=== PATIENT | female | born 1935 | race Caucasian/White ===

== ENCOUNTER 2017-03-24 15:44 | Inpatient (IN) | payer MEDICARE, OTHER ==
[2017-03-24 20:13] LABS: LACTIC ACID 2.2 mmol/L (0.5-2.0)
[2017-03-24 20:14] LABS: ALANINE AMINOTRANSFERASE 31 IU/L (13-69); ALBUMIN 3.9 g/dl (3.3-4.9); ALBUMIN/GLOBULIN RATIO 1.39; ALKALINE PHOSPHATASE 60 IU/L (42-121); ANION GAP 16 (8-16); ASPARTATE AMINO TRANSFERASE 25 IU/L (15-46); BILIRUBIN,INDIRECT 0.1 mg/dl (0-1.1); BILIRUBIN,TOTAL 0.1 mg/dl (0.2-1.3); BLOOD UREA NITROGEN 36 mg/dl (7-20); CALCIUM 9.1 mg/dl (8.4-10.2); CARBON DIOXIDE 29 mmol/L (21-31); CHLORIDE 96 mmol/L (97-110); CREATININE 0.98 mg/dl (0.44-1.00); GLUCOSE 100 mg/dl (70-220); SODIUM 137 mmol/L (135-144); TOTAL PROTEIN 6.7 g/dl (6.1-8.1)
[2017-03-24 20:15] LABS: ADD MAN DIFF? NO
[2017-03-24 20:17] LABS: BASOPHILS % 0.1 % (0.0-2.0); HEMATOCRIT 34.7 % (37.0-47.0); HEMOGLOBIN 11.7 g/dl (12.0-16.0); LYMPHOCYTES # 0.9 10^3/ul (0.8-2.9); LYMPHOCYTES % 8.4 % (15.0-51.0); MEAN CORPUSCULAR HEMOGLOBIN 32.8 pg (29.0-33.0); MEAN CORPUSCULAR HGB CONC 33.7 g/dl (32.0-37.0); MEAN CORPUSCULAR VOLUME 97.2 fl (82.0-101.0); MEAN PLATELET VOLUME 9.1 fl (7.4-10.4); MONOCYTE # 1.3 10^3/ul (0.3-0.9); MONOCYTES % 12.2 % (0.0-11.0); NEUTROPHIL # 8.6 10^3/ul (1.6-7.5); PLATELET COUNT 280 10^3/UL (140-415); RED BLOOD COUNT 3.57 10^6/ul (4.20-5.40); RED CELL DISTRIBUTION WIDTH 12.9 % (11.5-14.5)
[2017-03-24 20:17] LABS: WHITE BLOOD COUNT 10.8 10^3/ul (4.8-10.8)
[2017-03-24 20:24] LABS: TROPONIN-I 0.012 ng/ml (0.00-0.12)
[2017-03-24 20:36] LABS: ADD UMIC YES; INR 1.02; PROTIME 13.5 Sec (11.9-14.9); PT RATIO 1.1; UR ASCORBIC ACID NEGATIVE (NEGATIVE); UR BILIRUBIN (Dip) NEGATIVE (NEGATIVE); UR BLOOD (Dip) NEGATIVE (NEGATIVE); UR CLARITY CLEAR (CLEAR); UR COLOR YELLOW (YELLOW); UR GLUCOSE (Dip) NEGATIVE (NEGATIVE); UR KETONES (Dip) NEGATIVE (NEGATIVE); UR LEUKOCYTE ESTERASE (Dip) TRACE Leu/ul (NEGATIVE); UR NITRITE (Dip) NEGATIVE (NEGATIVE); UR RBC 2 /HPF (0-5); UR SPECIFIC GRAVITY (Dip) 1.016 (1.003-1.030); UR TOTAL PROTEIN (Dip) NEGATIVE (NEGATIVE); UR UROBILINOGEN (Dip) NEGATIVE (NEGATIVE); UR WBC 2 /HPF (0-5)
[2017-03-24 20:37] LABS: PARTIAL THROMBOPLASTIN TIME 28.3 Sec (25.0-35.0)
[2017-03-24 22:00] LABS: LACTIC ACID 2.1 mmol/L (0.5-2.0)
[2017-03-24] MEDS: IODIXANOL LOCM 100 ML BTL (22:10)
[2017-03-24] MEDS: SOD CHLORIDE 0.9% 100 ML (22:10)
[2017-03-24] MEDS ORDERED: BENZONATATE 100 MG CAP PO (23:30)
[2017-03-25] MEDS ORDERED: NACL 0.9% 3 ML SYG IV
[2017-03-25] MEDS ORDERED: ZOLPIDEM 5 MG TAB PO
[2017-03-25 00:10] LABS: LACTIC ACID 0.9 mmol/L (0.5-2.0)
[2017-03-25] MEDS: morphine 2 MG INJ IV ×5 (00:27→23:20)
[2017-03-25] MEDS: ONDANSETRON 4 MG INJ IV (00:27)
[2017-03-25] MEDS: SOD CHLORIDE 0.45% 1,000 ML IV ×2 (00:28→22:31)
[2017-03-25] MEDS: LEVOFLOXACIN 500MG/D5W (PMX) 100 ML IVPB ×2 (00:30→23:18)
[2017-03-25 05:47] LABS: ADD MAN DIFF? NO
[2017-03-25 05:48] LABS: BASOPHILS % 0.1 % (0.0-2.0); EOSINOPHILS % 0.1 % (0.0-7.0); HEMATOCRIT 34.7 % (37.0-47.0); HEMOGLOBIN 11.3 g/dl (12.0-16.0); MEAN CORPUSCULAR HEMOGLOBIN 31.8 pg (29.0-33.0); MEAN CORPUSCULAR HGB CONC 32.6 g/dl (32.0-37.0); MEAN CORPUSCULAR VOLUME 97.7 fl (82.0-101.0); MEAN PLATELET VOLUME 8.9 fl (7.4-10.4); MONOCYTES % 11.6 % (0.0-11.0); NEUTROPHIL # 6.9 10^3/ul (1.6-7.5); NEUTROPHILS % 76.8 % (39.0-77.0); PLATELET COUNT 249 10^3/UL (140-415); RED BLOOD COUNT 3.55 10^6/ul (4.20-5.40); RED CELL DISTRIBUTION WIDTH 13.1 % (11.5-14.5)
[2017-03-25 06:35] LABS: ALANINE AMINOTRANSFERASE 33 IU/L (13-69); ALBUMIN 3.3 g/dl (3.3-4.9); ALBUMIN/GLOBULIN RATIO 1.26; ALKALINE PHOSPHATASE 57 IU/L (42-121); ANION GAP 13 (8-16); ASPARTATE AMINO TRANSFERASE 22 IU/L (15-46); BILIRUBIN,INDIRECT 0.1 mg/dl (0-1.1); BILIRUBIN,TOTAL 0.1 mg/dl (0.2-1.3); BLOOD UREA NITROGEN 35 mg/dl (7-20); CALCIUM 8.5 mg/dl (8.4-10.2); CARBON DIOXIDE 26 mmol/L (21-31); CHLORIDE 102 mmol/L (97-110); CREATININE 0.91 mg/dl (0.44-1.00); GLUCOSE 91 mg/dl (70-220); POTASSIUM 4.2 mmol/L (3.5-5.1); SODIUM 137 mmol/L (135-144); TOTAL PROTEIN 5.9 g/dl (6.1-8.1)
[2017-03-25] MEDS: MAGNESIUM OXIDE 400 MG TAB PO (08:57)
[2017-03-25] MEDS: HYDROmorphONE 4 MG TAB PO ×2 (10:03→20:45)
[2017-03-26] MEDS: LEVALBUTEROL (NEB) 0.63 MG/3 ML AMP HHN (00:27)
[2017-03-26] MEDS: morphine 2 MG INJ IV ×3 (03:30→21:09)
[2017-03-26] MEDS: LORAZEPAM 1 MG TAB PO (05:57)
[2017-03-26] MEDS: MAGNESIUM OXIDE 400 MG TAB PO (08:34)
[2017-03-26 10:32] LABS: CA27.29 52 U/mL (<38)
[2017-03-26] MEDS: SOD CHLORIDE 0.45% 1,000 ML IV (20:30)
[2017-03-26] MEDS: LEVOFLOXACIN 500MG/D5W (PMX) 100 ML IVPB (23:30)
[2017-03-26] MEDS: HYDROmorphONE 4 MG TAB PO (23:50)
[2017-03-27] MEDS: morphine 2 MG INJ IV ×6 (01:06→23:55)
[2017-03-27] MEDS ORDERED: LEVALBUTEROL (NEB) 0.63 MG/3 ML AMP HHN (04:30)
[2017-03-27 05:20] LABS: AADO2 Arterial 93.7 mmHg (7.0-24.0); Allen Test ACCEPTAB; Arterial Base Excess -0.3 mmol/L (-3.0-3); Arterial Blood Gas Oxygen Sat 97.1 mmHG (95.0-100.0); Arterial COHb 0.2 % (0.0-3.0); Arterial Fraction of Oxyhgb 96.6 % (93.0-99.0); Arterial HCO3 24.2 mmol/L (22.0-26.0); Arterial MetHb 0.3 % (0.0-1.5); Arterial pCO2 39.2 mmhg (35-45); MODE NASAL CANNULA; Site Right Radial
[2017-03-27] MEDS: HYDROmorphONE 4 MG TAB PO ×2 (08:52→18:33)
[2017-03-27] MEDS: MAGNESIUM OXIDE 400 MG TAB PO (08:52)
[2017-03-27] MEDS: LEVOFLOXACIN 500MG/D5W (PMX) 100 ML IVPB (23:53)
[2017-03-28] MEDS: HYDROmorphONE 4 MG TAB PO (03:20)
[2017-03-28] MEDS: morphine 2 MG INJ IV ×5 (06:09→22:28)
[2017-03-28] MEDS: MAGNESIUM OXIDE 400 MG TAB PO (08:36)
[2017-03-29] MEDS: LEVOFLOXACIN 500MG/D5W (PMX) 100 ML IVPB (00:19)
[2017-03-29] MEDS: morphine 2 MG INJ IV ×5 (02:27→18:08)
[2017-03-29] MEDS: POLYETHYLENE GLYCOL 17 GM PACKET PO (09:03)
[2017-03-29] MEDS: SENNA TAB PO (09:03)
[2017-03-29] MEDS: MAGNESIUM OXIDE 400 MG TAB PO (09:03)
[2017-03-29] MEDS: LIDOCAINE 1% (MPF) 5 ML VIAL (16:08)
[2017-03-29] MEDS: HYDROmorphONE 4 MG TAB PO (16:18)
[2017-03-29] MEDS ORDERED: FENTAnyl PATCH 12 MCG/HR TRANSDERM (18:30)
[2017-03-29] MEDS: morphine 4 MG/ML VIAL IV (21:05)
[2017-03-30] MEDS: LEVOFLOXACIN 500MG/D5W (PMX) 100 ML IVPB (00:13)
[2017-03-30] MEDS: morphine 4 MG/ML VIAL IV ×2 (04:53→06:08)
[2017-03-30] MEDS: MAGNESIUM OXIDE 400 MG TAB PO ×2 (09:00→09:08)
[2017-03-30] MEDS: FOLIC ACID 1 MG TAB PO ×2 (09:00→09:08)
[2017-03-30] MEDS: POLYETHYLENE GLYCOL 17 GM PACKET PO ×2 (09:00→09:08)
[2017-03-30] MEDS: SENNA TAB PO ×2 (09:00→13:34)
[2017-03-30] MEDS: morphine 10 MG INJ IV ×4 (09:09→19:22)
[2017-03-30 11:03] LABS: ADD MAN DIFF? NO
[2017-03-30 11:08] LABS: ABNORMAL IP MESSAGE 1; BASOPHILS % 0.1 % (0.0-2.0); EOSINOPHILS % 0.1 % (0.0-7.0); HEMATOCRIT 32.8 % (37.0-47.0); HEMOGLOBIN 11.2 g/dl (12.0-16.0); LYMPHOCYTES # 0.5 10^3/ul (0.8-2.9); LYMPHOCYTES % 5.2 % (15.0-51.0); MEAN CORPUSCULAR HEMOGLOBIN 34.7 pg (29.0-33.0); MEAN CORPUSCULAR HGB CONC 34.1 g/dl (32.0-37.0); MEAN CORPUSCULAR VOLUME 101.5 fl (82.0-101.0); MEAN PLATELET VOLUME 9.2 fl (7.4-10.4); MONOCYTE # 0.8 10^3/ul (0.3-0.9); MONOCYTES % 8.1 % (0.0-11.0); NEUTROPHIL # 8.3 10^3/ul (1.6-7.5); NEUTROPHILS % 85.9 % (39.0-77.0); PLATELET COUNT 218 10^3/UL (140-415); RED BLOOD COUNT 3.23 10^6/ul (4.20-5.40); RED CELL DISTRIBUTION WIDTH 13.2 % (11.5-14.5)
[2017-03-30 11:08] LABS: WHITE BLOOD COUNT 9.7 10^3/ul (4.8-10.8)
[2017-03-30] MEDS: BARIUM SULFATE 135 ML (E-Z HD) PO (11:17)
[2017-03-30 11:20] LABS: POSITIVE DIFF @See below
[2017-03-30 11:40] LABS: ALANINE AMINOTRANSFERASE 24 IU/L (13-69); ALBUMIN 3.3 g/dl (3.3-4.9); ALKALINE PHOSPHATASE 62 IU/L (42-121); ANION GAP 12 (8-16); ASPARTATE AMINO TRANSFERASE 30 IU/L (15-46); BLOOD UREA NITROGEN 22 mg/dl (7-20); CALCIUM 8.4 mg/dl (8.4-10.2); CARBON DIOXIDE 27 mmol/L (21-31); CHLORIDE 101 mmol/L (97-110); CREATININE 0.89 mg/dl (0.44-1.00); GLUCOSE 134 mg/dl (70-220); POTASSIUM 4.4 mmol/L (3.5-5.1); SODIUM 136 mmol/L (135-144); TOTAL PROTEIN 6.3 g/dl (6.1-8.1)
[2017-03-30 12:45] LABS: ERYTHROCYTE SEDIMENTATION RATE 58 mm/Hr (0-30)
[2017-03-30] MEDS ORDERED: LORAZEPAM 1 MG TAB PO (13:00)
[2017-03-30] MEDS: morphine (ER) 15 MG TAB PO (21:00)
[2017-03-31] MEDS: LEVOFLOXACIN 500MG/D5W (PMX) 100 ML IVPB (00:10)
[2017-03-31] MEDS: morphine 10 MG INJ IV ×2 (04:43→12:43)
[2017-03-31] MEDS: SENNA TAB PO (10:17)
[2017-03-31] MEDS: FOLIC ACID 1 MG TAB PO (10:17)
[2017-03-31] MEDS: MAGNESIUM OXIDE 400 MG TAB PO (10:17)
[2017-03-31] MEDS: FLUOXETINE 10 MG CAP PO (10:17)
[2017-03-31] MEDS: POLYETHYLENE GLYCOL 17 GM PACKET PO (10:19)
[2017-03-31] MEDS: morphine (ER) 15 MG TAB PO ×2 (10:19→22:33)
[2017-03-31] MEDS: morphine LIQ (10 MG/5 ML) CUP PO (15:16)
[2017-04-01] MEDS: LEVOFLOXACIN 500 MG TAB PO (06:41)
[2017-04-01] MEDS: morphine LIQ (10 MG/5 ML) CUP PO (06:54)
[2017-04-01] MEDS: LEVALBUTEROL (NEB) 0.63 MG/3 ML AMP HHN ×2 (07:51→19:32)
[2017-04-01 08:31] LABS: PREALBUMIN 8.9 mg/dl (17.6-36.0)
[2017-04-01] MEDS: morphine 10 MG INJ IV ×2 (08:54→17:22)
[2017-04-01] MEDS: FLUOXETINE 10 MG CAP PO ×2 (09:00→10:15)
[2017-04-01] MEDS: SENNA TAB PO ×2 (09:00→10:16)
[2017-04-01] MEDS: POLYETHYLENE GLYCOL 17 GM PACKET PO ×2 (09:00→10:16)
[2017-04-01] MEDS: FOLIC ACID 1 MG TAB PO ×2 (09:00→10:16)
[2017-04-01] MEDS: MAGNESIUM OXIDE 400 MG TAB PO ×2 (09:00→10:15)
[2017-04-01] MEDS: morphine (ER) 15 MG TAB PO ×2 (10:16→12:22)
[2017-04-01 11:28] LABS: AADO2 Arterial 575.3 mmHg (7.0-24.0); Allen Test ACCEPTAB; Arterial Base Excess -0.2 mmol/L (-3.0-3); Arterial Blood Gas Oxygen Sat 78.1 mmHG (95.0-100.0); Arterial COHb 0.3 % (0.0-3.0); Arterial Fraction of Oxyhgb 77.8 % (93.0-99.0); Arterial HCO3 30.8 mmol/L (22.0-26.0); Arterial MetHb 0.1 % (0.0-1.5); Arterial Total Hemglobin 12.6 g/dl (12.0-18.0); Arterial pCO2 89.1 mmhg (35-45); Blood Gas IEPAP 15/5; MODE MASK - BIPAP; Site Right Radial
[2017-04-01] MEDS: NORepinephrine 8MG/250 ML (PMX 250 ML IV (12:45)
[2017-04-01] MEDS: SOD CHLORIDE 0.9% 1,000 ML IV ×3 (12:45→18:26)
[2017-04-01] MEDS ORDERED: NORepinephrine 8MG/250 ML (PMX 250 ML (12:46)
[2017-04-01 13:41] LABS: AADO2 Arterial 533.9 mmHg (7.0-24.0); Allen Test ACCEPTAB; Arterial Base Excess -2.6 mmol/L (-3.0-3); Arterial Blood Gas Oxygen Sat 98.4 mmHG (95.0-100.0); Arterial COHb 0.3 % (0.0-3.0); Arterial HCO3 23.5 mmol/L (22.0-26.0); Arterial MetHb 0.1 % (0.0-1.5); Arterial Total Hemglobin 11.8 g/dl (12.0-18.0); Arterial pCO2 45.9 mmhg (35-45); MODE VENT - AC; Site Right Radial
[2017-04-01] MEDS ORDERED: ETOMIDATE 20 MG INJ (15:00)
[2017-04-01] MEDS ORDERED: SUCCINYLCHOLINE CHLORIDE 100 MG/5 ML SYG IV (15:00)
[2017-04-01] MEDS: MIDAZOLAM (DRIP) 50 mg/50 mL 50 ML IV (15:45)
[2017-04-01] MEDS: FENTAnyl (DRIP) 1000 mcg/100mL 100 ML IV (17:31)
[2017-04-02] MEDS ORDERED: PHENYLephrine 20MG IN 250 ML 250 ML (03:33)
[2017-04-02] MEDS: PHENYLephrine 40 MG in DEXTROSE 5% 496 ML IV ×3 (04:06→18:25)
[2017-04-02] MEDS: SOD CHLORIDE 0.9% 1,000 ML IV ×2 (06:23→19:18)
[2017-04-02] MEDS: LEVOFLOXACIN 500 MG TAB PO (06:23)
[2017-04-02 06:29] LABS: ADD MAN DIFF? NO
[2017-04-02 06:42] LABS: ABNORMAL IP MESSAGE 1; BASOPHILS % 0.1 % (0.0-2.0); HEMOGLOBIN 9.8 g/dl (12.0-16.0); LYMPHOCYTES # 0.6 10^3/ul (0.8-2.9); MEAN CORPUSCULAR HEMOGLOBIN 33.3 pg (29.0-33.0); MEAN CORPUSCULAR HGB CONC 33.8 g/dl (32.0-37.0); MEAN CORPUSCULAR VOLUME 98.6 fl (82.0-101.0); MEAN PLATELET VOLUME 9.5 fl (7.4-10.4); MONOCYTE # 1.1 10^3/ul (0.3-0.9); MONOCYTES % 5.9 % (0.0-11.0); NEUTROPHIL # 17.1 10^3/ul (1.6-7.5); NEUTROPHILS % 90.6 % (39.0-77.0); PLATELET COUNT 216 10^3/UL (140-415); RED BLOOD COUNT 2.94 10^6/ul (4.20-5.40); RED CELL DISTRIBUTION WIDTH 13.5 % (11.5-14.5)
[2017-04-02 06:42] LABS: WHITE BLOOD COUNT 18.9 10^3/ul (4.8-10.8)
[2017-04-02 06:51] LABS: POSITIVE DIFF @See below
[2017-04-02 06:55] LABS: ALBUMIN/GLOBULIN RATIO 0.92; ANION GAP 14 (8-16)
[2017-04-02 07:00] LABS: ALANINE AMINOTRANSFERASE 34 IU/L (13-69); ASPARTATE AMINO TRANSFERASE 37 IU/L (15-46); BLOOD UREA NITROGEN 38 mg/dl (7-20); CALCIUM 7.4 mg/dl (8.4-10.2); CARBON DIOXIDE 21 mmol/L (21-31); CHLORIDE 106 mmol/L (97-110); CREATININE 1.26 mg/dl (0.44-1.00); GLUCOSE 150 mg/dl (70-220); MAGNESIUM 2.4 mg/dl (1.7-2.5); POTASSIUM 4.3 mmol/L (3.5-5.1); SODIUM 137 mmol/L (135-144)
[2017-04-02 07:01] LABS: ALBUMIN 2.6 g/dl (3.3-4.9); ALKALINE PHOSPHATASE 73 IU/L (42-121); BILIRUBIN,INDIRECT 0.1 mg/dl (0-1.1); BILIRUBIN,TOTAL 0.1 mg/dl (0.2-1.3); TOTAL PROTEIN 5.4 g/dl (6.1-8.1)
[2017-04-02] MEDS: morphine (ER) 15 MG TAB PO ×2 (09:00→21:16)
[2017-04-02] MEDS: FOLIC ACID 1 MG TAB PO (09:42)
[2017-04-02] MEDS: POLYETHYLENE GLYCOL 17 GM PACKET PO (09:42)
[2017-04-02] MEDS: SENNA TAB PO (09:42)
[2017-04-02] MEDS: FLUOXETINE 10 MG CAP PO (09:42)
[2017-04-02] MEDS: MAGNESIUM OXIDE 400 MG TAB PO (09:42)
[2017-04-02] MEDS: FENTAnyl (DRIP) 1000 mcg/100mL 100 ML IV (17:19)
[2017-04-02] MEDS: MIDAZOLAM (DRIP) 50 mg/50 mL 50 ML IV (17:19)
[2017-04-03] MEDS: PHENYLephrine 40 MG in DEXTROSE 5% 496 ML IV ×4 (00:08→15:33)
[2017-04-03 04:30] LABS: ADD MAN DIFF? NO
[2017-04-03 04:32] LABS: ABNORMAL IP MESSAGE 1; BASOPHILS % 0.1 % (0.0-2.0); HEMATOCRIT 28.1 % (37.0-47.0); HEMOGLOBIN 9.5 g/dl (12.0-16.0); LYMPHOCYTES # 0.9 10^3/ul (0.8-2.9); LYMPHOCYTES % 4.9 % (15.0-51.0); MEAN CORPUSCULAR HEMOGLOBIN 32.3 pg (29.0-33.0); MEAN CORPUSCULAR HGB CONC 33.8 g/dl (32.0-37.0); MEAN CORPUSCULAR VOLUME 95.6 fl (82.0-101.0); MEAN PLATELET VOLUME 8.9 fl (7.4-10.4); MONOCYTE # 1.5 10^3/ul (0.3-0.9); MONOCYTES % 8.8 % (0.0-11.0); NEUTROPHILS % 85.5 % (39.0-77.0); PLATELET COUNT 141 10^3/UL (140-415); RED BLOOD COUNT 2.94 10^6/ul (4.20-5.40); RED CELL DISTRIBUTION WIDTH 13.6 % (11.5-14.5)
[2017-04-03 04:32] LABS: WHITE BLOOD COUNT 17.5 10^3/ul (4.8-10.8)
[2017-04-03 04:39] LABS: POSITIVE DIFF @See below
[2017-04-03 04:52] LABS: LACTIC ACID 1.5 mmol/L (0.5-2.0)
[2017-04-03 04:56] LABS: BLOOD UREA NITROGEN 25 mg/dl (7-20); CALCIUM 6.9 mg/dl (8.4-10.2); CARBON DIOXIDE 22 mmol/L (21-31); CHLORIDE 103 mmol/L (97-110); CREATININE 0.91 mg/dl (0.44-1.00); GLUCOSE 166 mg/dl (70-220); SODIUM 132 mmol/L (135-144)
[2017-04-03] MEDS ORDERED: PHENYLephrine 20MG IN 250 ML 250 ML (05:09)
[2017-04-03 05:43] LABS: AADO2 Arterial 213.6 mmHg (7.0-24.0); Allen Test ACCEPTAB; Arterial HCO3 19.1 mmol/L (22.0-26.0); Arterial pCO2 30.1 mmhg (35-45); MODE VENT - AC; Site Left Radial
[2017-04-03] MEDS: LEVOFLOXACIN 500 MG TAB PO (06:23)
[2017-04-03] MEDS: SOD CHLORIDE 0.9% 1,000 ML IV ×2 (06:45→18:24)
[2017-04-03] MEDS: FENTAnyl (DRIP) 1000 mcg/100mL 100 ML IV ×2 (06:49→18:26)
[2017-04-03 07:41] LABS: ANION GAP 11 (8-16)
[2017-04-03 07:50] LABS: POTASSIUM 3.8 mmol/L (3.5-5.1)
[2017-04-03] MEDS: SENNA TAB PO (08:28)
[2017-04-03] MEDS: FOLIC ACID 1 MG TAB PO (08:28)
[2017-04-03] MEDS: FLUOXETINE 10 MG CAP PO (08:28)
[2017-04-03] MEDS: morphine (ER) 15 MG TAB PO (08:28)
[2017-04-03] MEDS: POLYETHYLENE GLYCOL 17 GM PACKET PO (08:28)
[2017-04-03] MEDS: MAGNESIUM OXIDE 400 MG TAB PO (08:28)
[2017-04-03] MEDS: ALBUMIN HUMAN 25% 100 ML IV ×2 (10:13→17:34)
[2017-04-03] MEDS: MUPIROCIN 2% 22 GM OINT TOP ×2 (15:33→21:52)
[2017-04-03] MEDS: ARTIFICIAL TEARS 15 ML OPH BOTH EYES ×2 (17:34→21:51)
[2017-04-03] MEDS: morphine (ER) 30 MG TAB PO (21:52)
[2017-04-03] MEDS: MIDAZOLAM (DRIP) 50 mg/50 mL 50 ML IV (23:55)
[2017-04-04] MEDS: PHENYLephrine 40 MG in DEXTROSE 5% 496 ML IV ×3 (01:55→16:02)
[2017-04-04] MEDS: ALBUMIN HUMAN 25% 100 ML IV (02:23)
[2017-04-04 05:06] LABS: ADD MAN DIFF? NO
[2017-04-04 05:17] LABS: AADO2 Arterial 184.7 mmHg (7.0-24.0); Allen Test ACCEPTAB; Arterial Base Excess -5.9 mmol/L (-3.0-3); Arterial Blood Gas Oxygen Sat 93.4 mmHG (95.0-100.0); Arterial COHb 0.4 % (0.0-3.0); Arterial Fraction of Oxyhgb 92.7 % (93.0-99.0); Arterial HCO3 17.5 mmol/L (22.0-26.0); Arterial MetHb 0.3 % (0.0-1.5); Arterial Total Hemglobin 9.3 g/dl (12.0-18.0); Arterial pCO2 27.1 mmhg (35-45); MODE VENT - AC; Site Left Radial
[2017-04-04 05:28] LABS: WHITE BLOOD COUNT 10.2 10^3/ul (4.8-10.8)
[2017-04-04 05:28] LABS: ABNORMAL IP MESSAGE 1; BASOPHILS % 0.1 % (0.0-2.0); EOSINOPHILS % 0.2 % (0.0-7.0); HEMATOCRIT 23.4 % (37.0-47.0); HEMOGLOBIN 7.8 g/dl (12.0-16.0); LYMPHOCYTES # 0.6 10^3/ul (0.8-2.9); LYMPHOCYTES % 5.6 % (15.0-51.0); MEAN CORPUSCULAR HEMOGLOBIN 31.7 pg (29.0-33.0); MEAN CORPUSCULAR HGB CONC 33.3 g/dl (32.0-37.0); MEAN CORPUSCULAR VOLUME 95.1 fl (82.0-101.0); MEAN PLATELET VOLUME 9.5 fl (7.4-10.4); MONOCYTE # 1.1 10^3/ul (0.3-0.9); NEUTROPHIL # 8.4 10^3/ul (1.6-7.5); NEUTROPHILS % 82.5 % (39.0-77.0); PLATELET COUNT 88 10^3/UL (140-415); RED BLOOD COUNT 2.46 10^6/ul (4.20-5.40); RED CELL DISTRIBUTION WIDTH 13.4 % (11.5-14.5)
[2017-04-04 05:32] LABS: POSITIVE DIFF @See below
[2017-04-04] MEDS: LEVOFLOXACIN 500 MG TAB PO (05:35)
[2017-04-04] MEDS: SOD CHLORIDE 0.9% 1,000 ML IV (05:36)
[2017-04-04] MEDS: FENTAnyl (DRIP) 1000 mcg/100mL 100 ML IV ×2 (05:37→16:03)
[2017-04-04 05:40] LABS: LACTIC ACID 1.7 mmol/L (0.5-2.0)
[2017-04-04 05:50] LABS: ALANINE AMINOTRANSFERASE 31 IU/L (13-69); ALBUMIN 3.4 g/dl (3.3-4.9); ALBUMIN/GLOBULIN RATIO 1.54; ALKALINE PHOSPHATASE 58 IU/L (42-121); ANION GAP 14 (8-16); ASPARTATE AMINO TRANSFERASE 17 IU/L (15-46); BILIRUBIN,INDIRECT 0.4 mg/dl (0-1.1); BILIRUBIN,TOTAL 0.4 mg/dl (0.2-1.3); BLOOD UREA NITROGEN 17 mg/dl (7-20); CALCIUM 6.8 mg/dl (8.4-10.2); CARBON DIOXIDE 19 mmol/L (21-31); CHLORIDE 102 mmol/L (97-110); CREATININE 0.73 mg/dl (0.44-1.00); GLUCOSE 87 mg/dl (70-220); MAGNESIUM 2.2 mg/dl (1.7-2.5); POTASSIUM 3.2 mmol/L (3.5-5.1); SODIUM 132 mmol/L (135-144); TOTAL PROTEIN 5.6 g/dl (6.1-8.1)
[2017-04-04] MEDS: FOLIC ACID 1 MG TAB PO (08:30)
[2017-04-04] MEDS: FLUOXETINE 10 MG CAP PO (08:30)
[2017-04-04] MEDS: MAGNESIUM OXIDE 400 MG TAB PO (08:30)
[2017-04-04] MEDS: SENNA TAB PO (08:30)
[2017-04-04] MEDS: POLYETHYLENE GLYCOL 17 GM PACKET PO (08:30)
[2017-04-04] MEDS: MUPIROCIN 2% 22 GM OINT TOP (08:31)
[2017-04-04] MEDS: ARTIFICIAL TEARS 15 ML OPH BOTH EYES ×3 (08:31→17:09)
[2017-04-04] MEDS: morphine (ER) 30 MG TAB PO ×2 (11:05→21:00)
[2017-04-04] MEDS: BALSAM PERU/CASTOR OIL 60 GM TUBE TOP (14:18)
[2017-04-04 15:50] LABS: WHITE BLOOD COUNT 12.6 10^3/ul (4.8-10.8)
[2017-04-04 15:50] LABS: ABNORMAL IP MESSAGE 1; HEMATOCRIT 24.7 % (37.0-47.0); HEMOGLOBIN 8.4 g/dl (12.0-16.0); MEAN CORPUSCULAR HEMOGLOBIN 32.1 pg (29.0-33.0); MEAN CORPUSCULAR VOLUME 94.3 fl (82.0-101.0); MEAN PLATELET VOLUME 9.4 fl (7.4-10.4); PLATELET COUNT 101 10^3/UL (140-415); RED BLOOD COUNT 2.62 10^6/ul (4.20-5.40); RED CELL DISTRIBUTION WIDTH 13.8 % (11.5-14.5)
[2017-04-04 15:52] LABS: ADD MAN DIFF? YES; POSITIVE DIFF @See below
[2017-04-04 16:10] LABS: ANION GAP 13 (8-16); BLOOD UREA NITROGEN 13 mg/dl (7-20); CALCIUM 6.3 mg/dl (8.4-10.2); CARBON DIOXIDE 19 mmol/L (21-31); CHLORIDE 100 mmol/L (97-110); CREATININE 0.68 mg/dl (0.44-1.00); GLUCOSE 120 mg/dl (70-220); POTASSIUM 3.3 mmol/L (3.5-5.1); SODIUM 129 mmol/L (135-144)
[2017-04-04 16:21] LABS: ANISOCYTOSIS 1+ (0-0); BAND NEUTROPHILS % (M) 8 % (0-4); ERYTHROBLAST% (NRBC) (M) 1 % (0-0); GIANT THROMBO% (M) 1 % (0-0); LYMPHOCYTES % (M) 8 % (15-51); MICROCYTOSIS 1+ (0-0); MONOCYTES % (M) 8 % (0-11); PLATELET ESTIMATE NORMAL; POLYCHROMASIA 2+ (0-0); SEG NEUT #M 9.7 10^3/ul (1.7-7.5); SEGMENTED NEUTROPHILS (M) % 76 % (39-77); SMUDGE%M 3 % (0-0)
[2017-04-04] MEDS: POTASSIUM CHLORIDE 20 MEQ POWDER FOR ORAL SOLN NGT (17:52)
[2017-04-04] MEDS: PHENYLephrine 80 MG in DEXTROSE 5% 492 ML IV (18:52)
[2017-04-05] MEDS: BALSAM PERU/CASTOR OIL 60 GM TUBE TOP ×3 (01:19→21:35)
[2017-04-05] MEDS: SOD CHLORIDE 0.9% 1,000 ML IV ×2 (01:19→08:59)
[2017-04-05] MEDS: MUPIROCIN 2% 22 GM OINT TOP ×3 (01:19→21:35)
[2017-04-05] MEDS: ARTIFICIAL TEARS 15 ML OPH BOTH EYES ×5 (01:19→21:35)
[2017-04-05] MEDS: PHENYLephrine 80 MG in DEXTROSE 5% 492 ML IV ×5 (01:22→23:28)
[2017-04-05 05:12] LABS: ADD MAN DIFF? NO
[2017-04-05 05:24] LABS: ABNORMAL IP MESSAGE 1; BASOPHILS % 0.1 % (0.0-2.0); HEMATOCRIT 28.2 % (37.0-47.0); HEMOGLOBIN 9.2 g/dl (12.0-16.0); LYMPHOCYTES # 0.5 10^3/ul (0.8-2.9); LYMPHOCYTES % 3.8 % (15.0-51.0); MEAN CORPUSCULAR HEMOGLOBIN 31.4 pg (29.0-33.0); MEAN CORPUSCULAR HGB CONC 32.6 g/dl (32.0-37.0); MEAN CORPUSCULAR VOLUME 96.2 fl (82.0-101.0); MEAN PLATELET VOLUME 10.1 fl (7.4-10.4); MONOCYTE # 1.6 10^3/ul (0.3-0.9); MONOCYTES % 13.1 % (0.0-11.0); NEUTROPHIL # 9.9 10^3/ul (1.6-7.5); NEUTROPHILS % 82.5 % (39.0-77.0); PLATELET COUNT 102 10^3/UL (140-415); RED BLOOD COUNT 2.93 10^6/ul (4.20-5.40); RED CELL DISTRIBUTION WIDTH 13.7 % (11.5-14.5)
[2017-04-05 05:26] LABS: POSITIVE DIFF @See below
[2017-04-05 05:38] LABS: INR 1.92; PROTIME 22.4 Sec (11.9-14.9); PT RATIO 1.8
[2017-04-05 05:39] LABS: PARTIAL THROMBOPLASTIN TIME 47.9 Sec (25.0-35.0)
[2017-04-05 06:11] LABS: ALANINE AMINOTRANSFERASE 222 IU/L (13-69); ALBUMIN 2.6 g/dl (3.3-4.9); ALBUMIN/GLOBULIN RATIO 1.04; ALKALINE PHOSPHATASE 70 IU/L (42-121); ANION GAP 13 (8-16); ASPARTATE AMINO TRANSFERASE 444 IU/L (15-46); BILIRUBIN,INDIRECT 0.1 mg/dl (0-1.1); BILIRUBIN,TOTAL 0.1 mg/dl (0.2-1.3); BLOOD UREA NITROGEN 14 mg/dl (7-20); CARBON DIOXIDE 17 mmol/L (21-31); CHLORIDE 102 mmol/L (97-110); CREATININE 0.84 mg/dl (0.44-1.00); GLUCOSE 186 mg/dl (70-220); POTASSIUM 4.2 mmol/L (3.5-5.1); SODIUM 128 mmol/L (135-144); TOTAL PROTEIN 5.1 g/dl (6.1-8.1)
[2017-04-05 06:15] LABS: CALCIUM 5.8 mg/dl (8.4-10.2)
[2017-04-05] MEDS: LEVOFLOXACIN 500 MG TAB PO (06:18)
[2017-04-05] MEDS: NORepinephrine 8MG/250 ML (PMX 250 ML IV ×4 (06:59→21:37)
[2017-04-05 07:24] LABS: D-DIMER 7559.84 ng/ml (<460)
[2017-04-05 08:34] LABS: ANISOCYTOSIS 1+ (0-0); BAND NEUTROPHILS #M 2.8 10^3/ul (0.0-0.6); BAND NEUTROPHILS % (M) 24 % (0-4); GIANT THROMBO% (M) 1 % (0-0); LYMPHOCYTES #M 0.2 10^3/ul (0.8-2.9); LYMPHOCYTES % (M) 2 % (15-51); MICROCYTOSIS 1+ (0-0); MONOCYTE #M 1.4 10^3/ul (0.3-0.9); MONOCYTES % (M) 12 % (0-11); PLATELET ESTIMATE DECREASED; POIKILOCYTOSIS 3+ (0-0); POLYCHROMASIA 1+ (0-0); SEG NEUT #M 7.8 10^3/ul (1.7-7.5); SEGMENTED NEUTROPHILS (M) % 62 % (39-77); SMUDGE%M 2 % (0-0)
[2017-04-05] MEDS: SENNA TAB PO (08:57)
[2017-04-05] MEDS: MAGNESIUM OXIDE 400 MG TAB PO (08:57)
[2017-04-05] MEDS: POLYETHYLENE GLYCOL 17 GM PACKET PO (08:58)
[2017-04-05] MEDS: FOLIC ACID 1 MG TAB PO (08:58)
[2017-04-05] MEDS: FLUOXETINE 10 MG CAP PO (09:09)
[2017-04-05] MEDS: morphine (ER) 30 MG TAB PO ×2 (09:10→21:00)
[2017-04-06] MEDS: NORepinephrine 8MG/250 ML (PMX 250 ML IV ×4 (02:47→16:17)
[2017-04-06] MEDS: PHENYLephrine 80 MG in DEXTROSE 5% 492 ML IV ×3 (05:09→17:59)
[2017-04-06] MEDS: LEVOFLOXACIN 500 MG TAB PO (05:10)
[2017-04-06] MEDS: SOD CHLORIDE 0.9% 1,000 ML IV ×2 (05:10→18:48)
[2017-04-06] MEDS: ARTIFICIAL TEARS 15 ML OPH BOTH EYES ×4 (08:43→21:19)
[2017-04-06] MEDS: BALSAM PERU/CASTOR OIL 60 GM TUBE TOP ×2 (08:43→21:19)
[2017-04-06] MEDS: MUPIROCIN 2% 22 GM OINT TOP ×2 (08:43→21:19)
[2017-04-06] MEDS: morphine (ER) 30 MG TAB PO ×2 (08:51→21:00)
[2017-04-06] MEDS: FLUOXETINE 10 MG CAP PO (08:51)
[2017-04-06] MEDS: POLYETHYLENE GLYCOL 17 GM PACKET PO (08:51)
[2017-04-06] MEDS: MAGNESIUM OXIDE 400 MG TAB PO (08:52)
[2017-04-06] MEDS: SENNA TAB PO (08:52)
[2017-04-06] MEDS: FOLIC ACID 1 MG TAB PO (08:52)
[2017-04-06] MEDS: morphine (DRIP) 100 MG/100 ML 100 ML IV (16:57)
== END 2017-04-06 21:55 | disposition expired | DRG 207 ==
LOC: ICU 04-01 11:31 → TEL 22:15 → ICU 04-04 13:45 → E/R 15:44
PROC: 5A1955Z Respiratory Ventilation, Greater than 96 Consecutive Hours (ICD-10-PCS; principal; 2017-03-29)
PROC: 0BH17EZ Insertion of Endotracheal Airway into Trachea, Via Natural or Artificial Opening (ICD-10-PCS; 2017-03-29)
PROC: 0W9B3ZX Drainage of Left Pleural Cavity, Percutaneous Approach, Diagnostic (ICD-10-PCS; 2017-03-29)
PROC: 05HM33Z Insertion of Infusion Device into Right Internal Jugular Vein, Percutaneous Approach (ICD-10-PCS; 2017-04-01)
DX: C78.1 Secondary malignant neoplasm of mediastinum (principal); R65.21 Severe sepsis with septic shock; D65 Disseminated intravascular coagulation [defibrination syndrome]; E43 Unspecified severe protein-calorie malnutrition; A41.9 Sepsis, unspecified organism; J90 Pleural effusion, not elsewhere classified; J18.9 Pneumonia, unspecified organism; J98.59 Other diseases of mediastinum, not elsewhere classified; J96.91 Respiratory failure, unspecified with hypoxia; J91.0 Malignant pleural effusion; J93.83 Other pneumothorax; I31.3 Pericardial effusion (noninflammatory); C79.81 Secondary malignant neoplasm of breast; C34.90 Malignant neoplasm of unspecified part of unspecified bronchus or lung; J98.19 Other pulmonary collapse; R64 Cachexia; Z68.1 Body mass index [BMI] 19.9 or less, adult; J93.9 Pneumothorax, unspecified; C50.919 Malignant neoplasm of unspecified site of unspecified female breast; M54.5 Low back pain; J44.9 Chronic obstructive pulmonary disease, unspecified; I95.9 Hypotension, unspecified; G89.29 Other chronic pain; D64.9 Anemia, unspecified; E87.6 Hypokalemia; R13.10 Dysphagia, unspecified; R59.0 Localized enlarged lymph nodes; R53.1 Weakness; R62.7 Adult failure to thrive; Z92.21 Personal history of antineoplastic chemotherapy; Z88.0 Allergy status to penicillin; Z88.2 Allergy status to sulfonamides; Z88.8 Allergy status to other drugs, medicaments and biological substances; Z88.6 Allergy status to analgesic agent; Z91.02 Food additives allergy status; Z66 Do not resuscitate
CPT/HCPCS: 36600; 71045; 71260; 74230; 76942; 80048; 80053; 81001; 82378; 82803; 83605; 83735; 84100; 84134; 84484; 85025; 85378; 85610; 85651; 85730; 86300; 87040; 87081; 87086; 88104; 88305; 92610; 93005; 93306; 94002; 94003; 94640; 94770; 96374; 96375; 96376; 97162; 99285-25